=== PATIENT | male | born 1960 | race African-American/Black ===

== ENCOUNTER 2017-01-06 11:16 | Inpatient (IN) | payer OTHER ==
[2017-01-06 12:09] VITALS: BMI 34.0
--- NOTE | 2017-01-06 14:34 | HP ---
COWS - Scale Resting Pulse: 1= [place] 81-100 Sweatin=Flushed/Facial Moisture Restless Observation: 1= Difficult to Sit Still Pupil Size: 0= Normal to Room Light Bone or Joint Aches: 2= Severe Diffuse Aches Runny Nose/ Eye Tearin= Runny Nose/Eyes GI Upset > 30mins: 1= Stomach Cramp Tremor Observation: 2= Slight Tremor Visible Yawning Observation: 2= >3x During Session Anxiety or Irritability: 2=Irritable/Anxious Goose Flesh Skin: 3=Piloerection COWS Score: 18 Admission ROS S - [facility] Chief Complaint: I am here for detox. Allergies/Adverse Reactions: Allergies Allergy/AdvReac Type Severity Reaction Status Date / Time No Known Allergies Allergy Verified 01/06/17 12:36 History of Present Illness: pt is a 56yr old male with a history of heroin dependence seeking detox for treatment. 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) - Ebola screening Have you traveled outside of the country in the last 21 days: No Have you had contact with anyone from an Ebola affected area: No Have you been sick,other than usual withdrawal symptoms: No Do you have a fever: No - Review of Systems Constitutional: Chills, Diaphoresis, Loss of Appetite, Night Sweats, Changes in sleep, Weight Stable EENT: reports: Tearing, Nose Congestion Respiratory: reports: No Symptoms reported Cardiac: reports: No Symptoms Reported GI: reports: Constipated, Poor Fluid Intake : reports: No Symptoms Reported Musculoskeletal: reports: Back Pain, Joint Pain, Muscle Pain Integumentary: reports: Flushing, Sweating Neuro: reports: Headache, Tingling, Tremors Endocrine: reports: Excessive Sweating, Flushing, Intolerance to Cold, Intolerance to Heat Hematology: reports: No Symptoms Reported Psychiatric: reports: Judgement Intact, Mood/Affect Appropiate, Orientated x3, Agitated, Anxious Other Systems: Reviewed and Negative Patient History - Patient Medical History Hx Anemia: No Hx Asthma: No Hx Chronic Obstructive Pulmonary Disease (COPD): No Hx Cancer: No Hx Cardiac Disorders: Yes (6 stents) Hx Congestive Heart Failure: No Hx Hypertension: Yes Hx Hypercholesterolemia: Yes Hx Pacemaker: No HX Cerebrovascular Accident: No Hx Seizures: No Hx Dementia: No Hx Diabetes: Yes (IDDM) Hx Gastrointestinal Disorders: No Hx Liver Disease: No Hx Genitourinary Disorders: No Hx Sexually Transmitted Disorders: No Hx Renal Disease (ESRD): No Hx Thyroid Disease: No Hx Human Immunodeficiency Virus (HIV): No (negative ) Hx Hepatitis C: No (negative received tx a year ago) Hx Depression: No Hx Suicide Attempt: No (denies) Hx Bipolar Disorder: No Hx Schizophrenia: No - Patient Surgical History Past Surgical History: No Hx Neurologic Surgery: No Hx Cataract Extraction: No Hx Cardiac Surgery: No Hx Lung Surgery: No Hx Breast Surgery: No Hx Breast Biopsy: No Hx Abdominal Surgery: No Hx Appendectomy: No Hx Cholecystectomy: No Hx Genitourinary Surgery: No Hx Section: No Hx Orthopedic Surgery: No Anesthesia Reaction: No - PPD History Previous Implant?: Yes Documented Results: Negative w/o proof Implanted On Prior R Admission?: No PPD to be Administered?: Yes - Reproductive History Patient is a Female of Child Bearing Age (11 -55 yrs old): No - Smoking Cessation Smoking history: Never smoked Have you smoked in the past 12 months: No Hx Chewing Tobacco Use: No Initiated information on smoking cessation: No - Substance & Tx. History Hx Alcohol Use: No Hx Substance Use: Yes Substance Use Type: Heroin Hx Substance Use Treatment: Yes - Substances Abused Heroin Route: Inhalation Frequency: Daily Amount used: 10 bags Age of first use: 14 Date of Last Use: 01/05/17 Family Disease History - Family Disease History Family History: Denies Admission Physical Exam [facility] - Vital Signs Vital Signs: Vital Signs - 24 hr 01/06/17 12:06 Temperature 99.8 F H Pulse Rate 90 Respiratory 18 Rate Blood Pressure 164/98 - Physical General Appearance: Yes: Appropriately Dressed, Moderate Distress, Obese, Tremorous, Irritable, Sweating, Anxious HEENTM: Yes: Normal Voice, Nasal Congestion, Rhinorrhea Respiratory: Yes: Lungs Clear, Normal Breath Sounds, No Respiratory Distress Neck: Yes: No masses,lesions,Nodules Breast: Yes: Within Normal Limits, No Discharge Cardiology: Yes: Regular Rhythm, Regular Rate, S1, S2 Abdominal: Yes: Normal Bowel Sounds, Non Tender Genitourinary: Yes: Within Normal Limits Back: Yes: Normal Inspection Musculoskeletal: Yes: full range of Motion, Other (neuropathy to lower legs and feet walks with cane) Extremities: Yes: Normal Capillary Refill, Non-Tender, Tremors Neurological: Yes: Fully Oriented, Alert, Normal Response Integumentary: Yes: Normal Color Lymphatic: Yes: Within Normal Limits - Diagnostic (1) Diabetes mellitus Current Visit: Yes Status: Chronic Qualifiers: Diabetes mellitus type: type 2 Diabetes mellitus complication status: without complication Diabetes mellitus snf insulin use: with chicken and fish butcher use Qualified Code(s): E11.9 - Type 2 diabetes mellitus without complications; Z79.4 - ad setter (current) use of insulin (2) Hyperlipidemia Current Visit: Yes Status: Chronic Qualifiers: Hyperlipidemia type: unspecified Qualified Code(s): E78.5 - Hyperlipidemia, unspecified (3) Hypertension Current Visit: Yes Status: Chronic Qualifiers: Hypertension type: essential hypertension Qualified Code(s): I10 - Essential (primary) hypertension (4) Hypothyroidism Current Visit: Yes Status: Chronic Qualifiers: Hypothyroidism type: unspecified Qualified Code(s): E03.9 - Hypothyroidism, unspecified (5) Opioid dependence with withdrawal Current Visit: Yes Status: Chronic Cleared for Admission S - Detox or Rehab [facility] Level of Care: Medically Managed Detox Regimen/Protocol: Methadone [facility] Breath Alcohol Content Breath Alcohol Content: 0 Urine Drug Screen - Results Drug Screen Negative: No Urine Drug Screen Results: OPI-Opiates, OXY-Oxycodone
[2017-01-06] MEDS ORDERED: hydrOXYzine PAMOATE 50 MG CAPSULE (FP) PO PRN (14:40)
[2017-01-06] MEDS ORDERED: MAG HYDROX/AL HYDROX/SIMETH 30 ML UNIT-DOSE CUP PO PRN (14:40)
[2017-01-06] MEDS ORDERED: MAGNESIUM CITRATE 300 ML BOTTLE PO PRN (14:40)
[2017-01-06] MEDS ORDERED: MENTHOL/PHENOL 1 EACH UD MM PRN (14:40)
[2017-01-06] MEDS ORDERED: IBUPROFEN 400 MG TABLET (FP) PO PRN (14:40)
[2017-01-06] MEDS ORDERED: guaiFENesin/D-METHORPHAN HB 10 ML UNIT-DOSE CUPS PO PRN (14:40)
[2017-01-06] MEDS ORDERED: LOPERAMIDE HCL 2 MG CAPSULE PO PRN (14:40)
[2017-01-06] MEDS ORDERED: ACETAMINOPHEN 325 MG TABLET (FP) PO PRN (14:40)
[2017-01-06] MEDS ORDERED: P-EPHED 60MG/TRIPROLIDI 2.5MG TABLET PO PRN (14:40)
[2017-01-06] MEDS ORDERED: METHADONE HCL 10 MG TABLET (FOR DETOX USE ONLY) PO ONE ×2 (15:05→23:00)
[2017-01-06] MEDS: diazePAM 5 MG TABLET PO PRN ×2 (15:18→22:09)
[2017-01-06] MEDS ORDERED: INSULIN (NOVOLOG) ASPART 100 UNITS/ML 10ML VIAL ONE (16:47)
[2017-01-06 16:56] LABS: URINE APPEARANCE CLEAR; URINE BILIRUBIN NEGATIVE (NEGATIVE); URINE BLOOD NEGATIVE (NEGATIVE); URINE COLOR LTYELLOW; URINE GLUCOSE (UA) 3+ (NEGATIVE); URINE KETONE NEGATIVE (NEGATIVE); URINE LEUK ESTERASE NEGATIVE (NEGATIVE); URINE NITRITE NEGATIVE (NEGATIVE); URINE PROTEIN NEGATIVE (NEGATIVE); URINE UROBILINOGEN NEGATIVE E.U./dl (0.2-1.0)
[2017-01-06] MEDS: INSULIN SLIDING SCALE (NOVOLOG) 1 VIAL SQ SCH (18:58)
[2017-01-06] MEDS ORDERED: INSULIN DETEMIR 100 UNITS/ML MDV SQ ONE (21:49)
[2017-01-06] MEDS: THIAMINE HCL 100 MG TABLET (FP) PO SCH (22:04)
[2017-01-06] MEDS: CARVEDILOL 25 MG TABLET (FP) PO SCH (22:04)
[2017-01-06] MEDS: INSULIN DETEMIR 100 UNITS/ML MDV SQ SCH (22:05)
[2017-01-06] MEDS: GABAPENTIN 300 MG CAPSULE (FP) PO SCH (22:05)
[2017-01-06] MEDS: ATORVASTATIN CA 40 MG TABLET (FP) PO SCH (22:05)
[2017-01-06] MEDS: diphenhydrAMINE HCL 50 MG CAPSULE PO PRN (22:10)
[2017-01-07] MEDS: diazePAM 5 MG TABLET PO PRN ×3 (06:02→22:45)
[2017-01-07] MEDS ORDERED: INSULIN (NOVOLOG) ASPART 100 UNITS/ML 10ML VIAL ONE ×3 (06:34→16:58)
[2017-01-07] MEDS: INSULIN SLIDING SCALE (NOVOLOG) 1 VIAL SQ SCH ×3 (06:35→17:00)
[2017-01-07] MEDS ORDERED: LEVOTHYROXINE 75 MCG, LEVOTHYROXINE 100 MCG PO SCH (07:00)
[2017-01-07 09:33] LABS: MCH 28.4 pg (25.7-33.7); MCHC 33.3 g/dl (32.0-35.9); MEAN CELL VOLUME 85.3 fl (80-96); MEAN PLT VOLUME 10.8 fl (7.5-11.1); PLATELET COUNT 216 K/MM3 (134-434); RDW 13.2 % (11.9-15.9); WHITE BLOOD COUNT 8.3 K/mm3 (4.0-10.0)
[2017-01-07] MEDS ORDERED: METHADONE HCL 10 MG TABLET (FOR DETOX USE ONLY) PO ONE (10:00)
[2017-01-07 10:44] LABS: ALBUMIN 4.4 g/dl (3.4-5.0); ALK PHOS 84 U/L (45-117); ANION GAP 13 (8-16); BILIRUBIN,TOTAL 0.4 mg/dL (0.2-1.0); CALCIUM 9.6 mg/dL (8.5-10.1); CO2 23 mmol/L (21-32); CREATININE 1.1 mg/dL (0.7-1.3); GLUCOSE,RANDOM 239 mg/dL (74-106); SGOT/AST 14 U/L (15-37); SGPT/ALT 17 U/L (12-78); TOT PROT 8.4 g/dl (6.4-8.2)
[2017-01-07] MEDS: ASPIRIN 81 MG CHEWABLE TABLETS PO SCH (10:56)
[2017-01-07] MEDS: PRENATAL VITAMINS W/ FOLIC ACID TABLET (FP) PO SCH (10:56)
[2017-01-07] MEDS: CLOPIDOGREL BISULFATE 75 MG TABLET (FP) PO SCH (10:56)
[2017-01-07] MEDS: amLODIPine BESYLATE 5 MG TABLET (FP) PO SCH (10:56)
[2017-01-07] MEDS: GABAPENTIN 300 MG CAPSULE (FP) PO SCH ×2 (10:56→22:41)
[2017-01-07] MEDS: MAGNESIUM HYDROX 2400MG/30ML ORAL SUSPENSION 30 ML CUP PO PRN ×2 (10:57→17:03)
[2017-01-07] MEDS: LEVOTHYROXINE NA 175 MCG TABLET PO SCH (10:57)
[2017-01-07] MEDS: CARVEDILOL 25 MG TABLET (FP) PO SCH (10:57)
--- NOTE | 2017-01-07 11:44 | PN ---
S COWS - Scale Resting Pulse: 0= ID 80 or Below Sweatin= Chills/Flushing Restless Observation: 3= Extraneous Movement Pupil Size: 2= Moderately Dilated Bone or Joint Aches: 4=Acute Joint/Muscle Pain Runny Nose/ Eye Tearin= Nasal Congestion GI Upset > 30mins: 1= Stomach Cramp Tremor Observation of Outstretched Hands: 1= Tremor [place], Not Seen Yawning Observation: 1= 1-2x During Session Anxiety or Irritability: 2=Irritable/Anxious Goose Flesh Skin: 0=Smooth Skin COWS Score: 16 S Progress Note (SOAP) Subjective: ANXIETY,SWEATS/CHILLS,RESTLESS,INTERMITENT SLEEP. Objective: 01/07/17 11:43 Vital Signs Temperature 96.3 F L 01/07/17 10:53 Pulse Rate 77 01/07/17 10:53 Respiratory Rate 18 01/07/17 10:53 Blood Pressure 154/87 01/07/17 10:53 O2 Sat by Pulse Oximetry (%) Laboratory Last Values WBC 8.3 K/mm3 (4.0-10.0) 01/07/17 07:47 RBC 4.85 M/mm3 (4.00-5.60) 01/07/17 07:47 Hgb 13.8 GM/dL (11.7-16.9) 01/07/17 07:47 Hct 41.4 % (35.4-49) 01/07/17 07:47 MCV 85.3 fl (80-96) 01/07/17 07:47 MCHC 33.3 g/dl (32.0-35.9) 01/07/17 07:47 RDW 13.2 % (11.9-15.9) 01/07/17 07:47 Plt Count 216 K/MM3 (134-434) 01/07/17 07:47 MPV 10.8 fl (7.5-11.1) 01/07/17 07:47 Sodium 138 mmol/L (136-145) 01/07/17 07:47 Potassium 4.2 mmol/L (3.5-5.1) 01/07/17 07:47 Chloride 102 mmol/L (98-107) 01/07/17 07:47 Carbon Dioxide 23 mmol/L (21-32) 01/07/17 07:47 Anion Gap 13 (8-16) 01/07/17 07:47 BUN 16 mg/dL (7-18) 01/07/17 07:47 Creatinine 1.1 mg/dL (0.7-1.3) 01/07/17 07:47 Creat Clearance w eGFR > 60 (>60) 01/07/17 07:47 POC Glucometer 162 UNITS (()) 01/07/17 06:04 Random Glucose 239 mg/dL (74-106) H 01/07/17 07:47 Calcium 9.6 mg/dL (8.5-10.1) 01/07/17 07:47 Total Bilirubin 0.4 mg/dL (0.2-1.0) 01/07/17 07:47 AST 14 U/L (15-37) L 01/07/17 07:47 ALT 17 U/L (12-78) 01/07/17 07:47 Alkaline Phosphatase 84 U/L (45-117) 01/07/17 07:47 Total Protein 8.4 g/dl (6.4-8.2) H 01/07/17 07:47 Albumin 4.4 g/dl (3.4-5.0) 01/07/17 07:47 Urine Color Ltyellow 01/06/17 13:00 Urine Appearance Clear 01/06/17 13:00 Urine pH 5.0 (5.0-8.0) 01/06/17 13:00 Ur Specific [place] 1.023 (1.001-1.035) 01/06/17 13:00 Urine Protein Negative (NEGATIVE) 01/06/17 13:00 Urine Glucose (UA) 3+ (NEGATIVE) H 01/06/17 13:00 Urine Ketones Negative (NEGATIVE) 01/06/17 13:00 Urine Blood Negative (NEGATIVE) 01/06/17 13:00 Urine Nitrite Negative (NEGATIVE) 01/06/17 13:00 Urine Bilirubin Negative (NEGATIVE) 01/06/17 13:00 Urine Urobilinogen Negative E.U./dl (0.2-1.0) 01/06/17 13:00 Ur Leukocyte Esterase Negative (NEGATIVE) 01/06/17 13:00 RPR Titer Nonreactive (NONREACTIVE) 01/07/17 07:47 Hepatitis C Antibody >11.0 s/co ratio (0.0-0.9) H 01/06/17 13:00 Assessment: 01/07/17 11:44 WITHDRAWAL SX Plan: CONTINUE DETOX
--- NOTE | 2017-01-07 16:44 | EKG ---
Test Reason : Blood Pressure : / mmHG Vent. Rate : 076 BPM Atrial Rate : 076 BPM P-R Int : 150 ms QRS Dur : 098 ms QT Int : 372 ms P-R-T Axes : 047 019 -02 degrees QTc Int : 418 ms NORMAL SINUS RHYTHM POSSIBLE LEFT ATRIAL ENLARGEMENT LEFT VENTRICULAR HYPERTROPHY NONSPECIFIC T WAVE ABNORMALITY ABNORMAL ECG NO PREVIOUS ECGS AVAILABLE Confirmed by MD SHIVAM, LORENE ([id number]) on 01/07/2017 4:43:54 PM Referred By: Confirmed By:LORENE LANGLEY MD
[2017-01-07] MEDS: ATORVASTATIN CA 40 MG TABLET (FP) PO SCH (22:40)
[2017-01-07] MEDS: THIAMINE HCL 100 MG TABLET (FP) PO SCH (22:40)
[2017-01-07] MEDS: CARVEDILOL 12.5 MG TABLET (FP) PO SCH (22:41)
[2017-01-07] MEDS: diphenhydrAMINE HCL 50 MG CAPSULE PO PRN (22:45)
[2017-01-07] MEDS: INSULIN DETEMIR 100 UNITS/ML MDV SQ SCH (22:48)
[2017-01-08] MEDS: diazePAM 5 MG TABLET PO PRN ×4 (05:59→22:35)
[2017-01-08] MEDS ORDERED: INSULIN (NOVOLOG) ASPART 100 UNITS/ML 10ML VIAL ONE ×2 (07:57→11:04)
[2017-01-08] MEDS: INSULIN SLIDING SCALE (NOVOLOG) 1 VIAL SQ SCH ×3 (07:58→17:25)
[2017-01-08] MEDS ORDERED: METHADONE HCL 5 MG TABLET (FOR DETOX USE ONLY) PO ONE (10:00)
[2017-01-08] MEDS: amLODIPine BESYLATE 5 MG TABLET (FP) PO SCH (10:45)
[2017-01-08] MEDS: LEVOTHYROXINE NA 175 MCG TABLET PO SCH (10:45)
[2017-01-08] MEDS: ASPIRIN 81 MG CHEWABLE TABLETS PO SCH (10:45)
[2017-01-08] MEDS: GABAPENTIN 300 MG CAPSULE (FP) PO SCH ×2 (10:45→22:31)
[2017-01-08] MEDS: PRENATAL VITAMINS W/ FOLIC ACID TABLET (FP) PO SCH (10:45)
[2017-01-08] MEDS: CLOPIDOGREL BISULFATE 75 MG TABLET (FP) PO SCH (10:46)
[2017-01-08] MEDS: CARVEDILOL 12.5 MG TABLET (FP) PO SCH ×2 (10:49→22:32)
--- NOTE | 2017-01-08 13:20 | PN ---
S COWS - Scale Resting Pulse: 1= MD 81-100 Sweatin= Chills/Flushing Restless Observation: 1= Difficult to Sit Still Pupil Size: 1= Pupils >than Normal Bone or Joint Aches: 2= Severe Diffuse Aches Runny Nose/ Eye Tearin= Runny Nose/Eyes GI Upset > 30mins: 2= Nausea/Diarrhea Tremor Observation of Outstretched Hands: 1= Tremor [place], Not Seen Yawning Observation: 1= 1-2x During Session Anxiety or Irritability: 2=Irritable/Anxious Goose Flesh Skin: 0=Smooth Skin COWS Score: 14 [facility] Progress Note (SOAP) Subjective: Restlessness, Tremors, Interrupted sleep, anxiety Objective: Vital Signs Temperature 96.2 F L 01/08/17 09:58 Pulse Rate 87 01/08/17 09:58 Respiratory Rate 18 01/08/17 09:58 Blood Pressure 147/93 01/08/17 09:58 O2 Sat by Pulse Oximetry (%) Laboratory Last Values WBC 8.3 K/mm3 (4.0-10.0) 01/07/17 07:47 RBC 4.85 M/mm3 (4.00-5.60) 01/07/17 07:47 Hgb 13.8 GM/dL (11.7-16.9) 01/07/17 07:47 Hct 41.4 % (35.4-49) 01/07/17 07:47 MCV 85.3 fl (80-96) 01/07/17 07:47 MCHC 33.3 g/dl (32.0-35.9) 01/07/17 07:47 RDW 13.2 % (11.9-15.9) 01/07/17 07:47 Plt Count 216 K/MM3 (134-434) 01/07/17 07:47 MPV 10.8 fl (7.5-11.1) 01/07/17 07:47 Sodium 138 mmol/L (136-145) 01/07/17 07:47 Potassium 4.2 mmol/L (3.5-5.1) 01/07/17 07:47 Chloride 102 mmol/L (98-107) 01/07/17 07:47 Carbon Dioxide 23 mmol/L (21-32) 01/07/17 07:47 Anion Gap 13 (8-16) 01/07/17 07:47 BUN 16 mg/dL (7-18) 01/07/17 07:47 Creatinine 1.1 mg/dL (0.7-1.3) 01/07/17 07:47 Creat Clearance w eGFR > 60 (>60) 01/07/17 07:47 POC Glucometer 263 UNITS (()) 01/08/17 11:01 Random Glucose 239 mg/dL (74-106) H 01/07/17 07:47 Calcium 9.6 mg/dL (8.5-10.1) 01/07/17 07:47 Total Bilirubin 0.4 mg/dL (0.2-1.0) 01/07/17 07:47 AST 14 U/L (15-37) L 01/07/17 07:47 ALT 17 U/L (12-78) 01/07/17 07:47 Alkaline Phosphatase 84 U/L (45-117) 01/07/17 07:47 Total Protein 8.4 g/dl (6.4-8.2) H 01/07/17 07:47 Albumin 4.4 g/dl (3.4-5.0) 01/07/17 07:47 Urine Color Ltyellow 01/06/17 13:00 Urine Appearance Clear 01/06/17 13:00 Urine pH 5.0 (5.0-8.0) 01/06/17 13:00 Ur Specific [place] 1.023 (1.001-1.035) 01/06/17 13:00 Urine Protein Negative (NEGATIVE) 01/06/17 13:00 Urine Glucose (UA) 3+ (NEGATIVE) H 01/06/17 13:00 Urine Ketones Negative (NEGATIVE) 01/06/17 13:00 Urine Blood Negative (NEGATIVE) 01/06/17 13:00 Urine Nitrite Negative (NEGATIVE) 01/06/17 13:00 Urine Bilirubin Negative (NEGATIVE) 01/06/17 13:00 Urine Urobilinogen Negative E.U./dl (0.2-1.0) 01/06/17 13:00 Ur Leukocyte Esterase Negative (NEGATIVE) 01/06/17 13:00 RPR Titer Nonreactive (NONREACTIVE) 01/07/17 07:47 Hepatitis C Antibody >11.0 s/co ratio (0.0-0.9) H 01/06/17 13:00 labs noted Assessment: Withdrawal Symptoms Plan: Continue Detox
[2017-01-08] MEDS: DOCUSATE SODIUM 100 MG CAPSULE (FP) PO SCH (22:31)
[2017-01-08] MEDS: ATORVASTATIN CA 40 MG TABLET (FP) PO SCH (22:31)
[2017-01-08] MEDS: THIAMINE HCL 100 MG TABLET (FP) PO SCH (22:32)
[2017-01-08] MEDS: INSULIN DETEMIR 100 UNITS/ML MDV SQ SCH (22:32)
[2017-01-08] MEDS: diphenhydrAMINE HCL 50 MG CAPSULE PO PRN (22:34)
[2017-01-09] MEDS: INSULIN SLIDING SCALE (NOVOLOG) 1 VIAL SQ SCH ×3 (06:06→17:47)
[2017-01-09] MEDS: diazePAM 5 MG TABLET PO PRN ×2 (06:10→11:18)
[2017-01-09] MEDS ORDERED: METHADONE HCL 5 MG TABLET (FOR DETOX USE ONLY) PO ONE (10:00)
[2017-01-09] MEDS: amLODIPine BESYLATE 5 MG TABLET (FP) PO SCH (10:30)
[2017-01-09] MEDS: CLOPIDOGREL BISULFATE 75 MG TABLET (FP) PO SCH (10:30)
[2017-01-09] MEDS: GABAPENTIN 300 MG CAPSULE (FP) PO SCH ×2 (10:30→22:30)
[2017-01-09] MEDS: ASPIRIN 81 MG CHEWABLE TABLETS PO SCH (10:30)
[2017-01-09] MEDS: PRENATAL VITAMINS W/ FOLIC ACID TABLET (FP) PO SCH (10:30)
[2017-01-09] MEDS: LEVOTHYROXINE NA 175 MCG TABLET PO SCH (10:30)
[2017-01-09] MEDS: CARVEDILOL 12.5 MG TABLET (FP) PO SCH ×2 (11:11→22:29)
[2017-01-09] MEDS ORDERED: INSULIN (NOVOLOG) ASPART 100 UNITS/ML 10ML VIAL ONE ×2 (11:17→17:05)
--- NOTE | 2017-01-09 16:17 | PN ---
[facility] Progress Note (SOAP) Subjective: Anxious, nausea, vomiting, diarrhea, interrupted sleep, sweating Objective: 01/09/17 16:16 Last Vital Signs Temp Pulse Resp BP Pulse Ox 97.2 F L 81 18 136/86 01/09/17 11:08 01/09/17 11:08 01/09/17 11:08 01/09/17 11:08 Laboratory Tests 01/06/17 01/06/17 01/06/17 13:00 13:00 13:01 WBC RBC Hgb Hct MCV MCHC RDW Plt Count MPV Sodium Potassium Chloride Carbon Dioxide Anion Gap BUN Creatinine Creat Clearance w eGFR POC Glucometer 302 Random Glucose Calcium Total Bilirubin AST ALT Alkaline Phosphatase Total Protein Albumin Urine Color Ltyellow Urine Appearance Clear Urine pH 5.0 Ur Specific [place] 1.023 Urine Protein Negative Urine Glucose (UA) 3+ H Urine Ketones Negative Urine Blood Negative Urine Nitrite Negative Urine Bilirubin Negative Urine Urobilinogen Negative Ur Leukocyte Esterase Negative RPR Titer Hepatitis C Antibody >11.0 H 01/06/17 01/06/17 01/07/17 16:25 20:58 06:04 WBC RBC Hgb Hct MCV MCHC RDW Plt Count MPV Sodium Potassium Chloride Carbon Dioxide Anion Gap BUN Creatinine Creat Clearance w eGFR POC Glucometer 203 254 162 Random Glucose Calcium Total Bilirubin AST ALT Alkaline Phosphatase Total Protein Albumin Urine Color Urine Appearance Urine pH Ur Specific [place] Urine Protein Urine Glucose (UA) Urine Ketones Urine Blood Urine Nitrite Urine Bilirubin Urine Urobilinogen Ur Leukocyte Esterase RPR Titer Hepatitis C Antibody 01/07/17 01/07/17 01/07/17 07:47 07:47 07:47 WBC 8.3 RBC 4.85 Hgb 13.8 Hct 41.4 MCV 85.3 MCHC 33.3 RDW 13.2 Plt Count 216 MPV 10.8 Sodium 138 Potassium 4.2 Chloride 102 Carbon Dioxide 23 Anion Gap 13 BUN 16 Creatinine 1.1 Creat Clearance w eGFR > 60 POC Glucometer Random Glucose 239 H Calcium 9.6 Total Bilirubin 0.4 AST 14 L ALT 17 Alkaline Phosphatase 84 Total Protein 8.4 H Albumin 4.4 Urine Color Urine Appearance Urine pH Ur Specific [place] Urine Protein Urine Glucose (UA) Urine Ketones Urine Blood Urine Nitrite Urine Bilirubin Urine Urobilinogen Ur Leukocyte Esterase RPR Titer Nonreactive Hepatitis C Antibody 01/07/17 01/07/17 01/08/17 11:40 16:32 06:00 WBC RBC Hgb Hct MCV MCHC RDW Plt Count MPV Sodium Potassium Chloride Carbon Dioxide Anion Gap BUN Creatinine Creat Clearance w eGFR POC Glucometer 212 296 194 Random Glucose Calcium Total Bilirubin AST ALT Alkaline Phosphatase Total Protein Albumin Urine Color Urine Appearance Urine pH Ur Specific [place] Urine Protein Urine Glucose (UA) Urine Ketones Urine Blood Urine Nitrite Urine Bilirubin Urine Urobilinogen Ur Leukocyte Esterase RPR Titer Hepatitis C Antibody 01/08/17 01/08/17 01/09/17 11:01 16:28 06:06 WBC RBC Hgb Hct MCV MCHC RDW Plt Count MPV Sodium Potassium Chloride Carbon Dioxide Anion Gap BUN Creatinine Creat Clearance w eGFR POC Glucometer 263 210 191 Random Glucose Calcium Total Bilirubin AST ALT Alkaline Phosphatase Total Protein Albumin Urine Color Urine Appearance Urine pH Ur Specific [place] Urine Protein Urine Glucose (UA) Urine Ketones Urine Blood Urine Nitrite Urine Bilirubin Urine Urobilinogen Ur Leukocyte Esterase RPR Titer Hepatitis C Antibody 01/09/17 11:13 WBC RBC Hgb Hct MCV MCHC RDW Plt Count MPV Sodium Potassium Chloride Carbon Dioxide Anion Gap BUN Creatinine Creat Clearance w eGFR POC Glucometer 240 Random Glucose Calcium Total Bilirubin AST ALT Alkaline Phosphatase Total Protein Albumin Urine Color Urine Appearance Urine pH Ur Specific [place] Urine Protein Urine Glucose (UA) Urine Ketones Urine Blood Urine Nitrite Urine Bilirubin Urine Urobilinogen Ur Leukocyte Esterase RPR Titer Hepatitis C Antibody Labs noted Assessment: 01/09/17 16:16 Withdrawal symptoms Plan: Continue detox
[2017-01-09 17:43] LABS: URINE APPEARANCE CLEAR; URINE BILIRUBIN NEGATIVE (NEGATIVE); URINE BLOOD NEGATIVE (NEGATIVE); URINE COLOR LTYELLOW; URINE GLUCOSE (UA) 3+ (NEGATIVE); URINE KETONE NEGATIVE (NEGATIVE); URINE LEUK ESTERASE NEGATIVE (NEGATIVE); URINE NITRITE NEGATIVE (NEGATIVE); URINE PROTEIN NEGATIVE (NEGATIVE); URINE UROBILINOGEN NEGATIVE E.U./dl (0.2-1.0)
[2017-01-09] MEDS ORDERED: ATORVASTATIN CA 20 MG TABLET (FP) ONE (20:20)
[2017-01-09] MEDS: ATORVASTATIN CA 40 MG TABLET (FP) PO SCH (22:29)
[2017-01-09] MEDS: diphenhydrAMINE HCL 50 MG CAPSULE PO PRN (22:30)
[2017-01-09] MEDS: THIAMINE HCL 100 MG TABLET (FP) PO SCH (22:30)
[2017-01-09] MEDS: DOCUSATE SODIUM 100 MG CAPSULE (FP) PO SCH (22:31)
[2017-01-09] MEDS: INSULIN DETEMIR 100 UNITS/ML MDV SQ SCH (22:37)
[2017-01-10] MEDS ORDERED: INSULIN (NOVOLOG) ASPART 100 UNITS/ML 10ML VIAL ONE (06:04)
[2017-01-10] MEDS ORDERED: LEVOTHYROXINE NA 175 MCG TABLET PO SCH (07:00)
[2017-01-10] MEDS: INSULIN SLIDING SCALE (NOVOLOG) 1 VIAL SQ SCH (07:12)
[2017-01-10] MEDS: PRENATAL VITAMINS W/ FOLIC ACID TABLET (FP) PO SCH (09:38)
[2017-01-10] MEDS: GABAPENTIN 300 MG CAPSULE (FP) PO SCH (09:39)
[2017-01-10] MEDS: CLOPIDOGREL BISULFATE 75 MG TABLET (FP) PO SCH (09:39)
[2017-01-10] MEDS: CARVEDILOL 12.5 MG TABLET (FP) PO SCH (09:41)
[2017-01-10] MEDS ORDERED: METHADONE HCL 10 MG TABLET (FOR DETOX USE ONLY) PO ONE (10:00)
[2017-01-10] MEDS ORDERED: METHADONE HCL 5 MG TABLET (FOR DETOX USE ONLY) PO ONE (10:00)
[2017-01-10] MEDS ORDERED: amLODIPine BESYLATE 5 MG TABLET (FP) PO SCH (10:00)
[2017-01-10 10:02] VITALS: BP 151/85; PULSE 92; TEMP 96.1
--- NOTE | 2017-01-10 10:37 | DS ---
[facility] Detox Discharge Summary Admission Date: 01/06/17 Discharge Date: 01/10/17 - History Present History: Opioid Dependence Pertinent Past History: HTN Type II DM CAD Hep C, treated - Physical Exam Results Vital Signs: Vital Signs Temperature 96.1 F L 01/10/17 10:00 Pulse Rate 92 H 01/10/17 10:00 Respiratory Rate 18 01/10/17 10:00 Blood Pressure 151/85 01/10/17 10:00 O2 Sat by Pulse Oximetry (%) Pertinent Admission Physical Exam Findings: Withdrawal sx. Laboratory Last Values WBC 8.3 K/mm3 (4.0-10.0) 01/07/17 07:47 RBC 4.85 M/mm3 (4.00-5.60) 01/07/17 07:47 Hgb 13.8 GM/dL (11.7-16.9) 01/07/17 07:47 Hct 41.4 % (35.4-49) 01/07/17 07:47 MCV 85.3 fl (80-96) 01/07/17 07:47 MCHC 33.3 g/dl (32.0-35.9) 01/07/17 07:47 RDW 13.2 % (11.9-15.9) 01/07/17 07:47 Plt Count 216 K/MM3 (134-434) 01/07/17 07:47 MPV 10.8 fl (7.5-11.1) 01/07/17 07:47 Sodium 138 mmol/L (136-145) 01/07/17 07:47 Potassium 4.2 mmol/L (3.5-5.1) 01/07/17 07:47 Chloride 102 mmol/L (98-107) 01/07/17 07:47 Carbon Dioxide 23 mmol/L (21-32) 01/07/17 07:47 Anion Gap 13 (8-16) 01/07/17 07:47 BUN 16 mg/dL (7-18) 01/07/17 07:47 Creatinine 1.1 mg/dL (0.7-1.3) 01/07/17 07:47 Creat Clearance w eGFR > 60 (>60) 01/07/17 07:47 POC Glucometer 287 UNITS (()) 01/10/17 05:40 Random Glucose 239 mg/dL (74-106) H 01/07/17 07:47 Calcium 9.6 mg/dL (8.5-10.1) 01/07/17 07:47 Total Bilirubin 0.4 mg/dL (0.2-1.0) 01/07/17 07:47 AST 14 U/L (15-37) L 01/07/17 07:47 ALT 17 U/L (12-78) 01/07/17 07:47 Alkaline Phosphatase 84 U/L (45-117) 01/07/17 07:47 Total Protein 8.4 g/dl (6.4-8.2) H 01/07/17 07:47 Albumin 4.4 g/dl (3.4-5.0) 01/07/17 07:47 Urine Color Ltyellow 01/09/17 14:29 Urine Appearance Clear 01/09/17 14:29 Urine pH 6.0 (5.0-8.0) 01/09/17 14:29 Ur Specific [place] 1.014 (1.001-1.035) 01/09/17 14:29 Urine Protein Negative (NEGATIVE) 01/09/17 14:29 Urine Glucose (UA) 3+ (NEGATIVE) H 01/09/17 14:29 Urine Ketones Negative (NEGATIVE) 01/09/17 14:29 Urine Blood Negative (NEGATIVE) 01/09/17 14:29 Urine Nitrite Negative (NEGATIVE) 01/09/17 14:29 Urine Bilirubin Negative (NEGATIVE) 01/09/17 14:29 Urine Urobilinogen Negative E.U./dl (0.2-1.0) 01/09/17 14:29 Ur Leukocyte Esterase Negative (NEGATIVE) 01/09/17 14:29 RPR Titer Nonreactive (NONREACTIVE) 01/07/17 07:47 Hepatitis C Antibody >11.0 s/co ratio (0.0-0.9) H 01/06/17 13:00 labs noted, Pt. was treated for Hep C - Treatment Hospital Course: Detox Protocol Followed, Detoxed Safely, Responded well, Discharged Condition Good, Rehab Referral Accepted Patient has Accepted a Rehab Referral to: IOP - Medication Discharge Medications: Ambulatory Orders Amlodipine Besylate [Norvasc -] 5 mg PO DAILY 01/06/17 Aspirin [ASA -] 81 mg PO DAILY 01/06/17 Atorvastatin Ca [Lipitor] 80 mg PO HS 01/06/17 Carvedilol [Coreg -] 25 mg PO BID 01/06/17 Clopidogrel Bisulfate [Clopidogrel] 75 mg PO DAILY 01/06/17 Gabapentin [Neurontin -] 300 mg PO BID 01/06/17 Insulin Glargine,Hum.rec.anlog [Lantus Solostar PEN -] 30 units SQ HS 01/06/17 Levothyroxine [Synthroid -] 175 mcg PO DAILY 01/06/17 - Diagnosis (1) Hyperlipidemia Current Visit: Yes Status: Chronic Qualifiers: Hyperlipidemia type: unspecified Qualified Code(s): E78.5 - Hyperlipidemia, unspecified (2) Hypertension Current Visit: Yes Status: Chronic Qualifiers: Hypertension type: essential hypertension Qualified Code(s): I10 - Essential (primary) hypertension (3) Hypothyroidism Current Visit: Yes Status: Chronic Qualifiers: Hypothyroidism type: unspecified Qualified Code(s): E03.9 - Hypothyroidism, unspecified (4) Opioid dependence with withdrawal Current Visit: Yes Status: Chronic (5) Type II diabetes mellitus Current Visit: Yes Status: Acute Qualifiers: Diabetes mellitus chcf insulin use: with chcf use - AMA Did Patient Leave Against Medical Advice: No
[2017-01-11] MEDS ORDERED: METHADONE HCL 5 MG TABLET (FOR DETOX USE ONLY) PO ONE (06:00)
== END 2017-01-10 09:46 | disposition home or self-care (01) | DRG 773 ==
LOC: YASAS 11:16 → Y3N 13:26
PROVIDERS: ADMIT Internal Medicine; ATTEND Internal Medicine
PROC: HZ2ZZZZ Detoxification Services for Substance Abuse Treatment (ICD-10-PCS; principal; 2017-01-10)
DX: F11.23 Opioid dependence with withdrawal (principal); I10 Essential (primary) hypertension; E11.9 Type 2 diabetes mellitus without complications; Z79.4 Long term (current) use of insulin; E78.5 Hyperlipidemia, unspecified; E03.9 Hypothyroidism, unspecified
CPT/HCPCS: 36415; 80053; 81003; 85027; 86593; 87522; 93005; 93010